=== PATIENT | male | born 1960 | race Caucasian/White ===

== ENCOUNTER 2023-05-20 17:46 | Emergency (ER) | payer OTHER ==
[~2023-05-20] VITALS: Ht 182.9 cm; Wt 88.8 kg
[2023-05-20] MEDS ORDERED: MORPHINE 4 MG/ML 1ML VIAL IV ONE ×2 (19:15→22:10)
[2023-05-20] MEDS ORDERED: NS 1,000 ML IV ONE (19:15)
[2023-05-20] MEDS ORDERED: ONDANSETRON 4MG 2ML VIAL IV ONE ×2 (19:15→21:45)
[2023-05-20 19:50] LABS: LIPASE 43 U/L (12-53)
[2023-05-20 19:53] LABS: ALKALINE PHOSPHATASE 110 U/L (46-116); ALT/SGPT 55 U/L (7.0-40); AST/SGOT 46 U/L (<34); BILIRUBIN,TOTAL 2.3 MG/DL (0.3-1.2); BLOOD UREA NITROGEN 15 MG/DL (9-23); CALCIUM LEVEL 9.7 MG/DL (8.3-10.6); CARBON DIOXIDE LEVEL 18 MMOL/L (20-31); CHLORIDE LEVEL 101 MMOL/L (98-107); CREATININE FOR GFR 0.84 MG/DL (0.70-1.30); GLOMERULAR FILTRATION RATE > 60.0 (>49); GLUCOSE, FASTING 125 MG/DL (74-106); POTASSIUM SERUM 3.3 MMOL/L (3.5-5.1); SODIUM LEVEL 141 MMOL/L (136-145); TOTAL PROTEIN 6.7 G/DL (5.7-8.2)
[2023-05-20 19:58] LABS: BASO # 0.1 10^3/uL (0.0-0.2); BASO % 0.8 % (0.0-1.0); EOS # 0.1 10^3/uL (0.0-0.5); EOS % 0.8 % (0.0-3.0); HEMATOCRIT 43.3 % (42.0-52.0); HEMOGLOBIN 15.7 g/dl (13.5-17.5); LYMPH # 0.8 10^3/uL (1.5-5.0); LYMPH % 10.8 % (24.0-44.0); MEAN CORPUSCULAR HEMOGLOBIN 32.2 pg (27.0-33.0); MEAN CORPUSCULAR HGB CONC 36.3 g/dl (32.0-36.5); MEAN CORPUSCULAR VOLUME 88.7 fl (80.0-96.0); MONO # 0.4 10^3/uL (0.0-0.8); MONO % 5.5 % (2.0-8.0); NEUTROPHILS # 5.9 10^3/uL (1.5-8.5); NEUTROPHILS % 81.8 % (36.0-66.0); PLATELET COUNT, AUTOMATED 118 10^3/uL (150-450); RED BLOOD COUNT 4.88 10^6/uL (4.30-6.10); WHITE BLOOD COUNT 7.2 10^3/uL (4.0-10.0)
[2023-05-20 20:52] LABS: CK-MB VALUE MASS 1.5 NG/ML (<3.6)
[2023-05-20 20:53] LABS: MB/CK RELATIVE INDEX 1.16 (< OR =4)
[2023-05-20] MEDS ORDERED: ASPIRIN 81MG CHEW TABLET PO ONE ×2 (21:15→21:35)
[2023-05-20] MEDS ORDERED: GLIP10TA PO (21:23)
[2023-05-20] MEDS ORDERED: LEVO137T2 PO (21:23)
[2023-05-20] MEDS ORDERED: FE C PO (21:23)
[2023-05-20] MEDS ORDERED: XIFA550T PO (21:23)
[2023-05-20] MEDS ORDERED: INSUDET SC (21:23)
[2023-05-20] MEDS ORDERED: ATOR1TAB19 PO (21:23)
[2023-05-20] MEDS ORDERED: FURO20TA2 PO (21:23)
[2023-05-20] MEDS ORDERED: METF-818 PO (21:23)
[2023-05-20] MEDS ORDERED: SPIR-10 PO (21:23)
[2023-05-20] MEDS ORDERED: ISOVUE-370 76% 100ML VIAL As Ordered ONE (21:24)
[2023-05-20] MEDS: NITROGLYCERIN 0.4MG SUBL TABLET SL PRN ×3 (21:42→21:54)
[2023-05-20 21:47] VITALS: BP 177/88
[2023-05-20 21:57] LABS: CK-MB VALUE MASS 2.3 NG/ML (<3.6); MB/CK RELATIVE INDEX 1.54 (< OR =4)
[2023-05-20] MEDS ORDERED: HEPARIN SOD (PORCINE) 5000UNITS/ML 1ML VIAL/SYRINGE IV ONE (22:10)
[2023-05-20] MEDS ORDERED: HEPARIN SOD (PORCINE) 5000UNITS/ML 1ML VIAL/SYRINGE IV PRN (22:10)
[2023-05-20] MEDS ORDERED: HEPARIN DRIP 25,000 UNITS in IV 1 EA IV SCH (22:10)
[2023-05-20 23:12] LABS: HEMATOCRIT 37.6 % (42.0-52.0); MEAN CORPUSCULAR HEMOGLOBIN 32.5 pg (27.0-33.0); MEAN CORPUSCULAR HGB CONC 36.2 g/dl (32.0-36.5); MEAN CORPUSCULAR VOLUME 89.7 fl (80.0-96.0); PLATELET COUNT, AUTOMATED 103 10^3/uL (150-450); RED BLOOD COUNT 4.19 10^6/uL (4.30-6.10); WHITE BLOOD COUNT 8.4 10^3/uL (4.0-10.0)
[2023-05-20 23:14] LABS: HEMOGLOBIN 13.6 g/dl (13.5-17.5)
[2023-05-20] MEDS ORDERED: HYDROMORPHONE HCL 0.5 MG/ 0.5 ML SYRINGE IV PRN (23:25)
[2023-05-21] MEDS ORDERED: POTASSIUM CHLORIDE 10MEQ SR TABLET PO ONE (05:50)
[2023-05-21 07:16] VITALS: BP 134/65; TEMP 97.9; O2SAT 98
== END 2023-05-21 07:21 | disposition short-term general hospital (02) ==
LOC: M ED 17:46
DX: I21.4 Non-ST elevation (NSTEMI) myocardial infarction (principal); K80.20 Calculus of gallbladder without cholecystitis without obstruction; K74.60 Unspecified cirrhosis of liver; D69.6 Thrombocytopenia, unspecified; Z87.442 Personal history of urinary calculi; Z87.19 Personal history of other diseases of the digestive system; Z82.49 Family history of ischemic heart disease and other diseases of the circulatory system; N62 Hypertrophy of breast; R16.1 Splenomegaly, not elsewhere classified; K22.89 Other specified disease of esophagus; N28.1 Cyst of kidney, acquired; E11.9 Type 2 diabetes mellitus without complications; E03.9 Hypothyroidism, unspecified; Z79.4 Long term (current) use of insulin; Z79.899 Other long term (current) drug therapy; Z88.8 Allergy status to other drugs, medicaments and biological substances
CPT/HCPCS: 71045; 71275; 76705; 80048; 80076; 81001; 82550; 82553; 83690; 85025; 85027; 85730; 93005; 96361; 96365; 96366; 96375; 96376; 99285; J2405; Q9967